=== PATIENT | male | born 1950 | race Caucasian/White ===

== ENCOUNTER 2020-06-14 06:51 | Day surgery (SDC) | payer MEDICARE, BC ==
[2020-06-14] MEDS ORDERED: Lactated Ringers 1,000 ML IV SCH (07:00)
[2020-06-14] MEDS ORDERED: fentaNYL 100 MCG/2 ML SDV ONE (08:05)
[2020-06-14] MEDS ORDERED: Propofol 200 MG/20 ML SDV ONE ×2 (08:05→08:34)
[2020-06-14 09:11] VITALS: BP 101/59; PULSE 60
--- NOTE | 2020-06-14 11:14 | OR ---
DATE OF SURGERY: 06/14/2020 REFERRING PROVIDER: Kiersten Soto DO PRE-OPERATIVE DIAGNOSES: 1. Screening colonoscopy. The patient does have prior history of polyps with last colonoscopy being 5 years ago. 2. Chronic diarrhea. The patient did have random biopsies done last time. He does take Imodium 2 tablets at bedtime. 3. Positive family history of colon cancer, paternal grandfather and uncle. Positive family history of polyps in Father. POST-OPERATIVE DIAGNOSES: 1. Four total polyps removed. a. 3 mm and 2 mm polyps at 100 cm (entry to cecum). Both of these were removed using cold forceps. b. 2 mm polyp at 95 cm, removed using cold forceps. The specimen was lost upon retrieval. c. 10 mm x 5 mm sessile polyp at 90 cm, removed using hot snare. 2. Significant diverticulosis affecting the entire colon, left greater than right. PROCEDURE: Colonoscopy with polypectomy x4 (3 using cold forceps and 1 using hot snare). SURGEON: Cosmo He M.D. ANESTHESIA: Monitored anesthesia care. BOWEL PREP: Fair. This did require moderate irrigation and suctioning. Elan is a 70-year-old male who was brought to the endoscopy suite after discussing risks and benefits of the procedure. Informed consent was obtained for conscious sedation and colonoscopy with or without biopsy and/or polypectomy. We also discussed possibility of missed lesions. Pre-procedure exam was unremarkable. IV, oxygen, and monitors were placed. The patient was placed in the left lateral decubitus position. Sedation was administered and a digital rectal exam was performed which was unremarkable. Colonoscope was passed into the rectum and slowly advanced all the way to the cecum. Cecum was viewed and photographed. Terminal ileum was viewed and was normal in appearance. The colonoscope was slowly withdrawn and the mucosa was closed observed in a direct circumferential manner. The ascending colon was remarkable for 3 mm and 2 mm polyps at 100 cm, which is entry to the cecum. These were both removed using cold forceps. There was another 2 mm polyp at 95 cm, removed using cold forceps, but then was lost upon retrieval. The transverse colon revealed 10 mm x 5 mm sessile polyp at 90 cm, removed using hot snare. The descending colon was otherwise unremarkable. The sigmoid colon was otherwise unremarkable. The entire colon did reveal significant diverticulosis, left greater than right. Retroflexion was performed and rectal mucosa was unremarkable. Scope was removed. The patient tolerated the procedure well. The patient was monitored until that baseline status. Discharge instructions were reviewed and the patient was discharged in good condition. COMPLICATIONS: None. TOTAL TIME: 35 minutes. ESTIMATED BLOOD LOSS: About 1 mL. RECOMMENDATIONS/FOLLOW-UP: We will await results of path report to determine ideal followup interval. We will have the patient hold his aspirin for 3 days to limit any chance of bleeding from the polypectomy sites. I would like to kindly thank Kiersten Soto for this referral. DMB: 06/14/2020 09:18:05 MODL: 06/14/2020 10:00:40 /[id number]
== END 2020-06-14 09:44 | disposition home or self-care (01) ==
LOC: VM.SDS 06:51
PROVIDERS: ATTEND Family Medicine
DX: Z12.11 Encounter for screening for malignant neoplasm of colon (principal); D12.3 Benign neoplasm of transverse colon; D12.2 Benign neoplasm of ascending colon; K59.09 Other constipation; K57.30 Diverticulosis of large intestine without perforation or abscess without bleeding; I10 Essential (primary) hypertension; E78.5 Hyperlipidemia, unspecified; N52.9 Male erectile dysfunction, unspecified; G89.29 Other chronic pain; M25.561 Pain in right knee; E66.9 Obesity, unspecified; H61.23 Impacted cerumen, bilateral; Z01.812 Encounter for preprocedural laboratory examination; Z20.828 Contact with and (suspected) exposure to other viral communicable diseases; Z79.899 Other long term (current) drug therapy; Z87.891 Personal history of nicotine dependence; Z98.890 Other specified postprocedural states; Z80.0 Family history of malignant neoplasm of digestive organs; Z68.33 Body mass index [BMI] 33.0-33.9, adult
CPT/HCPCS: 00812; 45380; 45385; J2704; J3010; J7120; U0002; 88305

== ENCOUNTER 2020-07-30 18:50 | Emergency (ER) | payer MEDICARE, BC ==
[2020-07-30 19:05] VITALS: BP 155/97; PULSE 103
[2020-07-30] MEDS ORDERED: Oxymetazoline 0.05% Nasal Spray 30 ML Bottle NAS PRN (19:12)
--- NOTE | 2020-07-30 20:11 | EDM.PDOC ---
ED HPI GENERAL MEDICAL PROBLEM - General Chief Complaint: ENT Problem Stated Complaint: BLOODY NOSE ALL DAY Time Seen by Provider: 07/30/20 19:00 Source of Information: Reports: Patient History Limitations: Reports: No Limitations - History of Present Illness INITIAL COMMENTS - FREE TEXT/NARRATIVE: Pt. presents to ER with complaints of epistaxis from both nares, R greater than L. Denies any trauma to the area. He is not currently anticoagulated but does take aspirin daily. Denies any fever or chills. He states that he can feel the blood running down the back of his throat. Pt. denies any lightheadedness. Denies any weakness. He states that he has been intermittently been experiencing the bleeding for several days, but states that it is quite constant today. Onset: Today Onset Date: 07/30/20 Location: Reports: Face - Related Data Allergies Allergy/AdvReac Type Severity Reaction Status Date / Time No Known Allergies Allergy Verified 07/30/20 19:07 Home Meds: Home Meds Aspirin [Halfprin] 81 mg PO DAILY 04/05/15 [History] Lisinopril 5 mg PO DAILY 04/05/15 [History] Simvastatin [Zocor] 20 mg PO BEDTIME 04/05/15 [History] Calcium Carbonate [Tums] 1,000 mg PO DAILY 05/24/20 [History] Ibuprofen 400 mg PO Q6H PRN 05/24/20 [History] Loperamide [Imodium] 2 mg PO ASDIRECTED PRN 05/24/20 [History] Past Medical History Cardiovascular History: Reports: High Cholesterol, Hypertension, Other (See Below) Other Cardiovascular History: atherosclerosis of abdominal aorta; perpheral artery disease; intermitten claudication Respiratory History: Reports: Other (See Below) Other Respiratory History: lung nodule Gastrointestinal History: Reports: Colon Polyp, Other (See Below) Other Gastrointestinal History: RLQ abd. pain, perianal fissure Genitourinary History: Reports: Other (See Below) Other Genitourinary History: ED; urinary hesitancy Musculoskeletal History: Reports: Back Pain, Chronic, Other (See Below) Other Musculoskeletal History: plantar fasciitis, bunion of right foot Psychiatric History: Reports: Other (See Below) Other Psychiatric History: tobacco user Endocrine/Metabolic History: Reports: Obesity/BMI 30+ Other Endocrine/Metabolic History: IFG Dermatologic History: Reports: Other (See Below) Other Dermatologic History: skin abscess - Past Surgical History HEENT Surgical History: Reports: Adenoidectomy, Tonsillectomy Other Cardiovascular Surgeries/Procedures: STENTS FEMORAL VEINS GI Surgical History: Reports: Colonoscopy Other Musculoskeletal Surgeries/Procedures:: bunionectomy Social & Family History - Tobacco Use Tobacco Use Status *Q: Current Some Day Tobacco User Years of Tobacco use: 45 Packs/Tins Daily: 0.5 - Caffeine Use Caffeine Use: Reports: Coffee - Recreational Drug Use Recreational Drug Use: No ED ROS GENERAL - Review of Systems Review Of Systems: See Below Constitutional: Reports: No Symptoms HEENT: Reports: Nosebleed. Denies: Nose Pain Respiratory: Reports: No Symptoms Cardiovascular: Reports: No Symptoms Endocrine: Reports: No Symptoms GI/Abdominal: Reports: No Symptoms : Reports: No Symptoms Musculoskeletal: Reports: No Symptoms Skin: Reports: No Symptoms Neurological: Reports: No Symptoms Psychiatric: Reports: No Symptoms Hematologic/Lymphatic: Reports: No Symptoms Immunologic: Reports: No Symptoms ED EXAM, GENERAL - Physical Exam Exam: See Below Exam Limited By: No Limitations General Appearance: Alert, WD/WN, No Apparent Distress Nose: Other (mild to moderate level of bleeding from R nare with scant blood noted in L nare, not briskly bleeding. Unable to visualize the source of the bleeding. ) Throat/Mouth: Normal Lips, Normal Teeth, Normal Gums, No Airway Compromise, Other (some blood noted in hypopharynx) Head: Atraumatic, Normocephalic ED GENERAL MEDICAL PROCEDURES - Additional/Other Procedure(s) Other (Free Text) Procedure(s): 2 sprays of afrin were instilled in each nare. 7.5cm anterior/posterior rapid rhino device was placed in R nare and inflated with approx. 5 ml of air. Pt. was observed for some time in ER. No recurrent active bleeding was noted around the device or in the hypopharynx. Pt. tolerated this extremely well. Course - Vital Signs Last Recorded V/S: Last Vital Signs Temp 36.9 C 07/30/20 19:04 Pulse 103 H 07/30/20 19:04 Resp 18 07/30/20 19:04 BP 155/97 H 07/30/20 19:04 Pulse Ox 95 07/30/20 19:04 - Orders/Labs/Meds Orders: Active Orders 24 hr Category Date Time Status Oxymetazoline [Nasal Decongestant [place]] Med 07/30/20 19:12 Active 1 ml CHLOE BID PRN Medication Orders Oxymetazoline HCl (Nasal Decongestant [place]) 1 ml CHLOE BID PRN PRN Reason: Congestion Meds: Medications Generic Name Dose Route Start Last Admin Trade Name Freq PRN Reason Stop Dose Admin Oxymetazoline HCl 1 ml 07/30/20 19:12 Nasal Decongestant [place] CHLOE BID PRN Congestion Departure - Departure Time of Disposition: 19:45 Disposition: Home, Self-Care 01 Clinical Impression: Epistaxis - Discharge Information Instructions: Nosebleed, Adult Referrals: Kiersten Soto, [Primary Care Provider] - Forms: ED Department Discharge Additional Instructions: Follow-up in clinic tomorrow. You could probably have the packing removed tomorrow, but I would suggest leaving it in until . May use the afrin as needed for continued bleeding from the L nostril. Return to ER if having severe bleeding around the balloon. Sepsis Event Note (ED) - Evaluation Sepsis Screening Result: No Definite Risk - Focused Exam Vital Signs: Vital Signs Temp Pulse Resp BP Pulse Ox 07/30/20 19:04 36.9 C 103 H 18 155/97 H 95 - Problem List Review Problem List Initiated/Reviewed/Updated: Yes - My Orders Last 24 Hours: My Active Orders 07/30/20 19:12 Oxymetazoline [Nasal Decongestant [place]] 1 ml CHLOE BID PRN - Assessment/Plan Last 24 Hours: My Active Orders 07/30/20 19:12 Oxymetazoline [Nasal Decongestant [place]] 1 ml CHLOE BID PRN Plan: Follow-up in clinic tomorrow. You could probably have the packing removed tomorrow, but I would suggest leaving it in until . May use the afrin as needed for continued bleeding from the L nostril. Return to ER if having severe bleeding around the balloon.
== END 2020-07-30 19:40 | disposition home or self-care (01) ==
LOC: VM.ED 18:50
DX: R04.0 Epistaxis (principal); E78.00 Pure hypercholesterolemia, unspecified; I10 Essential (primary) hypertension; F17.210 Nicotine dependence, cigarettes, uncomplicated; E66.9 Obesity, unspecified; Z68.33 Body mass index [BMI] 33.0-33.9, adult; Z79.82 Long term (current) use of aspirin; Z79.899 Other long term (current) drug therapy
CPT/HCPCS: 30901; 30903; 99283-25; 99284; A9270-GY

== ENCOUNTER 2022-03-13 16:33 | Emergency (ER) | payer MEDICARE, BC ==
[2022-03-13 16:42] VITALS: BP 173/86; PULSE 93
[2022-03-13] MEDS ORDERED: Take Home: Acetaminophen/HYDROcodone 325-5 MG, 5 Tab Pack PO ONE (17:08)
[2022-03-13] MEDS ORDERED: Diphtheria,Pertussis(Acell),Tetanus Vaccine 0.5 ML Syringe IM ONE (17:16)
== END 2022-03-13 17:25 | disposition home or self-care (01) ==
LOC: VM.ED 16:33
DX: S68.613A Complete traumatic transphalangeal amputation of left middle finger, initial encounter (principal); I10 Essential (primary) hypertension; E66.9 Obesity, unspecified; Z68.30 Body mass index [BMI] 30.0-30.9, adult; Z79.899 Other long term (current) drug therapy; Z79.82 Long term (current) use of aspirin; Z23 Encounter for immunization; W26.8XXA Contact with other sharp object(s), not elsewhere classified, initial encounter
CPT/HCPCS: 73140-F2; 90471; 90715; 99283; 99283-25

== ENCOUNTER 2023-06-18 07:18 | Day surgery (SDC) | payer MEDICARE, BC ==
[2023-06-18] MEDS: Lactated Ringers 1,000 ML IV SCH (07:32)
[2023-06-18] MEDS ORDERED: Propofol 200 MG/20 ML SDV ONE ×2 (08:15→09:20)
[2023-06-18] MEDS ORDERED: fentaNYL 100 MCG/2 ML SDV ONE (08:16)
[2023-06-18 10:11] VITALS: BP 129/64; PULSE 66
== END 2023-06-18 11:09 | disposition home or self-care (01) ==
LOC: VM.SDS 07:18
PROVIDERS: ATTEND Family Medicine
DX: Z12.11 Encounter for screening for malignant neoplasm of colon (principal); D12.0 Benign neoplasm of cecum; D12.2 Benign neoplasm of ascending colon; D12.3 Benign neoplasm of transverse colon; K57.30 Diverticulosis of large intestine without perforation or abscess without bleeding; Z80.0 Family history of malignant neoplasm of digestive organs; E78.5 Hyperlipidemia, unspecified; R73.03 Prediabetes; E66.9 Obesity, unspecified; Z79.899 Other long term (current) drug therapy; Z68.30 Body mass index [BMI] 30.0-30.9, adult
CPT/HCPCS: 00811; 88305; J2704; J3010; J7120